=== PATIENT | male | born 1965 | race Caucasian/White ===

== ENCOUNTER 2018-05-05 08:39 | Emergency (ER) | payer OTHER ==
[2018-05-05] MEDS ORDERED: IPRATROPIUM/ALBUTEROL 3 ML DEYVIAL ONE (09:10)
--- NOTE | 2018-05-05 09:12 | EDPHY ---
H & P Time Seen by Provider: 05/05/18 09:08 HPI/ROS: CHIEF COMPLAINT: Cough, cold HISTORY OF PRESENT ILLNESS: The patient is a 52-year-old male with no past medical history of his sinusitis the presents emergency department with cold symptoms. His symptoms started last week. He initially developed typical sinus congestion and runny nose. However, he has subsequently developed an increasing nonproductive cough. He has intermittent body aches. He denies reported fever at home. Yesterday he had mild chest discomfort with coughing. He has no chest pain at rest. No leg pain or swelling. REVIEW OF SYSTEMS: 10 systems were reveiwed and are negative with the exception of the elements mentioned in the history of present illness. Past medical history: Includes sinusitis Past surgical history: Appendectomy Social history: Patient does not smoke Smoking Status: Never smoked Physical Exam: Vitals noted GENERAL: Well-appearing, in no acute distress, alert. Occasional cough. HEENT: Eyes normal to inspection, normal pharynx, no signs of dehydration. NECK: Normal, supple. RESPIRATORY: Coarse breath sounds bilaterally. No accessory muscle use. No increased work of breathing. No rales or rhonchi. No chest wall tenderness palpation. CVS: Regular rate and rhythm, no rubs, murmurs, or gallops. ABDOMEN: Soft, nontender, nondistended, no organomegaly. BACK: Normal to inspection, no CVA tenderness. SKIN: Normal color, no rash, warm, dry. No pallor. EXTREMITIES: No pedal edema, no calf tenderness, no Homans sign or cords, no joint swelling. NEURO/PSYCH: Alert and oriented, normal mood and affect, normal motor sensory exam. No obvious cranial nerve deficit. Constitutional: Initial Vital Signs Temperature (C) 37 C 05/05/18 08:46 Heart Rate 71 05/05/18 08:46 Respiratory Rate 16 05/05/18 08:46 Blood Pressure 120/82 H 05/05/18 08:46 O2 Sat (%) 95 05/05/18 08:46 O2 Delivery Mode Room Air Allergies/Adverse Reactions: No Known Allergies Allergy (Unverified 05/05/18 08:45) Home Medications: Medication Instructions Recorded NK [No Known Home Meds] 05/05/18 Medical Decision Making - Diagnostics Imaging Results: Imaging Impressions Chest X-Ray 05/05/18 09:08 Impression: 1. Bilateral lower lobe pneumonia. 2. Recommend follow-up until clear. Findings and recommendations discussed with Emergency Department physician, KAYLEY TERRAZAS at 9:27 hour, 05/05/2018. Final report concurs with initial preliminary interpretation. ED Course/Re-evaluation: In the emergency department I discussed possible etiologies with the patient. I answered all his questions. A chest x-ray was ordered. Patient was given a DuoNeb. EKG shows normal sinus rhythm, normal rate, normal axis, normal intervals. There are no ST or T-wave abnormalities. EKG is normal as interpreted by me. My chest x-ray: Patient has bilateral lower lobe infiltrates. I discussed the result with the patient. I answered all his questions. He was given Levaquin 750 mg orally. Patient's sounds more clear with less coarse breath sounds after receiving the DuoNeb. Because of this he will be discharged with an albuterol MDI. At this time the patient appears well. He has no respiratory distress. His oxygen saturation is normal. He has no signs of sepsis or toxicity. I feel the patient is safe for discharge. I discussed warning signs with the patient. He will return immediately if his symptoms worsen. He was given follow-up with the on-call physician. He also sees Dr. Laboy at [facility]. Differential Diagnosis: My differential includes but is not limited to pneumonia, bronchitis, influenza , reactive airway disease, ACS, acute DE, bacteremia, sepsis - Data Points Medications Given: Discontinued Medications Albuterol/Ipratropium (Duoneb) 3 ml IH EDNOW ONE Stop: 05/05/18 09:15 Last Admin: 05/05/18 09:21 Dose: 3 ml Departure - Departure Disposition: Home, Routine, Self-Care Clinical Impression: Influenza A Pneumonia Qualifiers: Pneumonia type: due to unspecified organism Laterality: bilateral Lung location : lower lobe of lung Qualified Code(s): J18.1 - Lobar pneumonia, unspecified organism Condition: Good Instructions: Pneumonia (ED), Influenza (ED) Additional Instructions: Return with increasing shortness of breath, persistent fever, weakness, fatigue or any other concerns. You have positive Influenza A and a positive chest xray for pneumonia. Take your entire course of antibiotics. Use your inhaler every 4 hr as needed. Referrals: Kleinke,Catalina T, DO [Doctor of Osteopathy] - 3-4 days, if not improved
[2018-05-05] MEDS ORDERED: IPRATROPIUM/ALBUTEROL 3 ML DEYVIAL IH ONE (09:14)
[2018-05-05 10:23] VITALS: BP 127/76
--- NOTE | 2018-05-05 14:13 | CPEKG ---
Test Reason : OPEN Blood Pressure : / mmHG Vent. Rate : 075 BPM Atrial Rate : 075 BPM P-R Int : 157 ms QRS Dur : 105 ms QT Int : 380 ms P-R-T Axes : 016 014 007 degrees QTc Int : 425 ms Sinus rhythm Low voltage, precordial leads Confirmed by Paula Jimenez ([id number]) on 05/05/2018 2:12:43 PM Referred By: PHYSICIAN ED Confirmed By:Paula Jimenez
== END 2018-05-05 10:00 | disposition home or self-care (01) ==
LOC: CED 08:39
DX: J10.08 Influenza due to other identified influenza virus with other specified pneumonia (principal); J18.1 Lobar pneumonia, unspecified organism
CPT/HCPCS: 71046-PO; 99284-ER